=== PATIENT | male | born 1980 | race Caucasian/White ===

== ENCOUNTER 2016-06-23 16:19 | Emergency (ER) | payer OTHER ==
[2016-06-23] MEDS ORDERED: METHOCARBAMOL 500 MG TAB As Ordered ONE (18:12)
[2016-06-23] MEDS ORDERED: PERCOCET 5MG/325MG TAB As Ordered ONE (18:12)
--- NOTE | 2016-06-23 18:50 | REPUSA ---
CLINICAL HISTORY: R/o DVT. COMMENTS: Real time sonography with duplex doppler of the right lower extremity was performed with attention to the major deep venous structures. Evaluation reveals the right common femoral, superficial femoral and popliteal veins to be completely compressible without intraluminal thrombus. There is normal spontaneous phasic flow and augmentation . The greater saphenous/common femoral vein junction is patent. IMPRESSION: No evidence of DVT in right lower extremity. Thank you for your kind referral of this patient.
[2016-06-23] MEDS ORDERED: OXYCODONE/APAP 5MG/325MG(BULK) 1 TAB TAB As Ordered ONE (19:22)
--- NOTE | 2016-06-23 19:36 | EDDOCDS ---
Physician Documentation [facility] Name: Eduard Cisneros Age: 35 yrs Sex: Male : 1980 Arrival Date: 06/23/2016 Time: 16:19 Bed PR Private MD: [facility] Disposition: 06/23/16 19:13 Discharged to Home/Self Care. Impression: Pain in right leg - SECONDARY TO MUSCLE TEAR. - Condition is Stable. - Discharge Instructions: Musculoskeletal Pain. - Prescriptions for Percocet 5- 325 mg Oral Tablet - take 1 tablet by ORAL route every 6 hours As needed MDD: 4 tabs; 6 tablet. Robaxin 500 mg Oral Tablet - take 2 tablet by ORAL route every 6 hours As needed; 40 tablet. - Medication Reconciliation, Local Pharmacy Hours form. - Follow up: [facility]; When: 1 - 2 days; Reason: Recheck today's complaints, Continuance of care. - Problem is new. - Symptoms have improved. - Notes: USE MEDICATION INSTRUCTED, FOLLOW UP WITH YOUR DOCTOR, RETURN TO THE ER IF THE SYMPTOMS WORSEN OR BECOME CONCERNING Historical: - Allergies: no known allergies; - Home Meds: 1. ibuprofen 200 mg Oral tab every 4-6 hours 2. methocarbamol 500 mg Oral tab as needed - PMHx: none; - PSHx: Fusion of L4, L5 & S1; - Social history: Smoking status: Patient states former smoker of tobacco. No barriers to communication noted, The patient speaks fluent Azeri. - Family history: Not pertinent. - : The pt / caregiver states he / she is not on anticoagulants. Home medication list is obtained from the patient. - Exposure Risk Screening:: None identified. Vital Signs: 06/23 16:23 BP 146 / 85; Pulse 92; Resp 18; Temp 98.9; Pulse Ox 96% ; Weight 106.59 kg / 234.99 elp lbs; Height 5 ft. 11 in. (180.34 cm); Pain 8/10; 19:17 BP 132 / 82; Pulse 77; Resp 18; Temp 98.2(T); Pulse Ox 95% on R/A; Pain 2/10; ar3 16:23 Body Mass Index 32.78 (106.59 kg, 180.34 cm) elp MDM: 18:08 oxyCODONE-acetaminophen 5 mg-325 mg 2 tabs PO once ordered. ck7 18:08 Methocarbamol 1 grams PO once ordered. ck7 18:08 US Lower Extremity R/O DVT Ordered. EDMS 18:22 Financial registration complete. kf3 19:13 oxyCODONE-acetaminophen 4 pack 5 mg-325 mg 1 packets PO once; Dispense with pt, take as ck7 per instruction on package ordered. 19:22 [facility] Payment Agreement was scanned into [employer] and attached to record. kf3 Administered Medications: 18:17 Drug: oxyCODONE-acetaminophen 2 tabs [oxycodone-acetaminophen 5 mg-325 mg tablet (2 rs3 tabs)] Route: PO; 18:17 Drug: Methocarbamol 1 grams [methocarbamol 500 mg tablet (2 tabs)] Route: PO; rs3 19:28 Drug: oxyCODONE-acetaminophen 4 pack 1 packets [oxycodone-acetaminophen 5 mg-325 mg rs3 tablet (1 tabs)] {Co-Signature: ben (Shane Multani RN).} Route: PO; Signatures: Dispatcher [employer] EDMS Seth Melendez, Reg Reg kf3 Meg Licona RN RN rs3 Olu Grayson, RPA-C RPA-Cck7 Shane contreras The chart was reviewed and I authenticate all verbal orders and agree with the evaluation and treatment provided.Attachments: 19:22 [facility] Payment Agreement kf3 MTDD
--- NOTE | 2016-06-23 19:36 | EDDOCDS ---
Nurse's Notes [facility] Name: Eduard Cisneros Age: 35 yrs Sex: Male : 1980 Arrival Date: 06/23/2016 Time: 16:19 Bed PR Private MD: [facility] [place] Diagnosis: Pain in right leg-SECONDARY TO MUSCLE TEAR Presentation: 06/23 16:28 Presenting complaint: Patient states: Right leg pain for few months. was seen by Dr. carlos Rai two days ago. has fusiform muscle tear. increased pain, worse with weight bearing and walking. Adult Sepsis Screening: The patient does not have new or worsening altered mentation. Patient's respiratory rate is less than 22. Systolic blood pressure is greater than 100. Patient has a qSOFA score of 0- Negative Sepsis Screen. Suicide/Homicide risk assessment- the patient denies having any suicidal and/or homicidal ideations and does not present with any other emotional, behavioral or mental health complaints. 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 Transition of care: patient was not received from another setting of care. 16:28 Acuity: MAGALI Level 3 rs3 16:28 Method Of Arrival: Wheelchair rs3 Triage Assessment: 16:33 General: Appears in no apparent distress. Pain: Location: right hip/leg. HIV screening rs3 NA for this visit Offered previously. Historical: - Allergies: no known allergies; - Home Meds: 1. ibuprofen 200 mg Oral tab every 4-6 hours 2. methocarbamol 500 mg Oral tab as needed - PMHx: none; - PSHx: Fusion of L4, L5 & S1; - Social history: Smoking status: Patient states former smoker of tobacco. No barriers to communication noted, The patient speaks fluent French. - Family history: Not pertinent. - : The pt / caregiver states he / she is not on anticoagulants. Home medication list is obtained from the patient. - Exposure Risk Screening:: None identified. Screenin:30 Screening information is obtained from the patient. Fall risk: No risks identified. rs3 Assistance ADL's: requires no assistance with activities of daily living. Abuse/DV Screen: The patient / caregiver reports he/she is: not in a situation that causes fear, pain or injury. Nutritional screening: No deficits noted. Advance Directives: Currently, there is no health care proxy. There is no active DNR order. home support is adequate. Assessment: 19:29 General: Appears in no apparent distress, Behavior is appropriate for age, cooperative. rs3 Pain: Location: right hip and leg. Neurological: Level of Consciousness is awake, alert, Oriented to person, place, time. Cardiovascular: Capillary refill < 3 seconds. Respiratory: Airway is patent Respiratory effort is even, unlabored. Derm: Skin is pink, warm & dry. Musculoskeletal: Circulation, motion, and sensation intact Capillary refill < 3 seconds Signs and Symptoms of Compartment Syndrome: no signs of compartment syndrome. Vital Signs: 16:23 BP 146 / 85; Pulse 92; Resp 18; Temp 98.9; Pulse Ox 96% ; Weight 106.59 kg; Height 5 elp ft. 11 in. (180.34 cm); Pain 8/10; 19:17 BP 132 / 82; Pulse 77; Resp 18; Temp 98.2(T); Pulse Ox 95% on R/A; Pain 2/10; ar3 16:23 Body Mass Index 32.78 (106.59 kg, 180.34 cm) el Vitals: 16:23 Log In Time: June 23, 2016 at 16:21. [facility] ED Course: 16:21 Patient visited by Radha Mendez PCA. elp 16:21 Patient moved to Waiting elp 16:22 [facility] is Private Physician. elp 16:23 Patient visited by Radha Mendez PCA. elp 16:23 Patient moved to Pre RCE elp 16:32 Triage Initiated rs3 17:40 Patient moved to Triage 1 ar3 18:00 [facility] ck7 18:00 Kit Biggs MD is Attending Physician. ck7 18:00 Patient visited by Olu Grayson RPA-C. ck7 18:15 Patient moved to TR2 dls 18:49 Patient visited by Olu Grayson RPA-C. ck7 19:08 Patient moved to PR2 / 26 cz 19:13 [facility] is Referral Physician. ck7 19:17 Patient visited by Ananya Washington PCA. ar3 19:18 US Lower Extremity R/O DVT Returned. EDMS 19:22 Patient name changed from Eduard\S\J\S\Walts\S\ to Eduard\S\Zhao\S\Walts. EDMS 19:22 [facility] Payment Agreement was scanned into [employer] and attached to record. kf3 19:30 No IV's were initiated during this patient's visit. No procedures done that require rs3 assistance. 19:31 The patient / caregiver is instructed regarding the plan of care and ED course. rs3 Administered Medications: 18:17 Drug: oxyCODONE-acetaminophen 2 tabs [oxycodone-acetaminophen 5 mg-325 mg tablet (2 rs3 tabs)] Route: PO; 18:17 Drug: Methocarbamol 1 grams [methocarbamol 500 mg tablet (2 tabs)] Route: PO; rs3 19:28 Drug: oxyCODONE-acetaminophen 4 pack 1 packets [oxycodone-acetaminophen 5 mg-325 mg rs3 tablet (1 tabs)] {Co-Signature: cz (Shane Multani RN).} Route: PO; Order Results: Radiology Order: US Lower Extremity R/O DVT Test: US Lower Extremity R/O DVT REASON FOR EXAMINATION: Deformity/Swelling; ; CLINICAL HISTORY: R/o DVT.; COMMENTS:; Real time sonography with duplex doppler of the right lower extremity was performed with attention to; the major deep venous structures.; Evaluation reveals the right common femoral, superficial femoral and popliteal veins to be completely; compressible without intraluminal thrombus. There is normal spontaneous phasic flow and augmentation; . The greater saphenous/common femoral vein junction is patent.; IMPRESSION:; No evidence of DVT in right lower extremity.; Thank you for your kind referral of this patient.; ; Outcome: 19:13 Discharge ordered by Provider. ck7 19:30 Discharge Assessment: patient administered narcotics - yes. Pt provided with safe rs3 discharge. The following High Risk Discharge criteria are identified: None. Discharged to home with family. Condition: stable. Discharge instructions given to patient, Instructed on discharge instructions, follow up and referral plans. medication usage, no driving heavy equipment, Demonstrated understanding of instructions, medications, Pt was receptive of discharge instructions/ teaching. Prescriptions given X 2. Ultrasound Study completed. Property :Personal belongings accompany Pt. 19:35 Patient left the ED. rs3 Signatures: Dispatcher [employer] EDMS Olga Nunez RN RN dls Shane Multani RN RN cz Seth Melendez, Reg Reg kf3 Meg Licona RN RN rs3 Ananya Washington, SENIOR TALENT ACQUISITION SPECIALIST SENIOR TALENT ACQUISITION SPECIALIST ar3 Olu Grayson, RPA-C RPA-Cck7 Andrea, Radha, SENIOR TALENT ACQUISITION SPECIALIST SENIOR TALENT ACQUISITION SPECIALIST elp Shane Multani RN cz MTDD
--- NOTE | 2016-06-25 20:36 | EDDOCDS ---
Nurse's Notes [facility] Name: Eduard Cisneros Age: 35 yrs Sex: Male : 1980 Arrival Date: 06/23/2016 Time: 16:19 Bed PR Private MD: [facility], [place] Diagnosis: Pain in right leg-SECONDARY TO MUSCLE TEAR Presentation: 06/23 16:28 Presenting complaint: Patient states: Right leg pain for few months. was seen by Dr. carlos Rai two days ago. has fusiform muscle tear. increased pain, worse with weight bearing and walking. Adult Sepsis Screening: The patient does not have new or worsening altered mentation. Patient's respiratory rate is less than 22. Systolic blood pressure is greater than 100. Patient has a qSOFA score of 0- Negative Sepsis Screen. Suicide/Homicide risk assessment- the patient denies having any suicidal and/or homicidal ideations and does not present with any other emotional, behavioral or mental health complaints. Status: Patient is not a services mgr or dependent. Transition of care: patient was not received from another setting of care. 16:28 Acuity: MAGALI Level 3 rs3 16:28 Method Of Arrival: Wheelchair rs3 Triage Assessment: 16:33 General: Appears in no apparent distress. Pain: Location: right hip/leg. HIV screening rs3 NA for this visit Offered previously. Historical: - Allergies: no known allergies; - Home Meds: 1. ibuprofen 200 mg Oral tab every 4-6 hours 2. methocarbamol 500 mg Oral tab as needed - PMHx: none; - PSHx: Fusion of L4, L5 & S1; - Social history: Smoking status: Patient states former smoker of tobacco. No barriers to communication noted, The patient speaks fluent Pashto. - Family history: Not pertinent. - : The pt / caregiver states he / she is not on anticoagulants. Home medication list is obtained from the patient. - Exposure Risk Screening:: None identified. Screenin:30 Screening information is obtained from the patient. Fall risk: No risks identified. rs3 Assistance ADL's: requires no assistance with activities of daily living. Abuse/DV Screen: The patient / caregiver reports he/she is: not in a situation that causes fear, pain or injury. Nutritional screening: No deficits noted. Advance Directives: Currently, there is no health care proxy. There is no active DNR order. home support is adequate. Assessment: 19:29 General: Appears in no apparent distress, Behavior is appropriate for age, cooperative. rs3 Pain: Location: right hip and leg. Neurological: Level of Consciousness is awake, alert, Oriented to person, place, time. Cardiovascular: Capillary refill < 3 seconds. Respiratory: Airway is patent Respiratory effort is even, unlabored. Derm: Skin is pink, warm & dry. Musculoskeletal: Circulation, motion, and sensation intact Capillary refill < 3 seconds Signs and Symptoms of Compartment Syndrome: no signs of compartment syndrome. Vital Signs: 16:23 BP 146 / 85; Pulse 92; Resp 18; Temp 98.9; Pulse Ox 96% ; Weight 106.59 kg; Height 5 elp ft. 11 in. (180.34 cm); Pain 8/10; 19:17 BP 132 / 82; Pulse 77; Resp 18; Temp 98.2(T); Pulse Ox 95% on R/A; Pain 2/10; ar3 16:23 Body Mass Index 32.78 (106.59 kg, 180.34 cm) el Vitals: 16:23 Log In Time: June 23, 2016 at 16:21. [facility] ED Course: 16:21 Patient visited by Radha Mendez PCA. elp 16:21 Patient moved to Waiting elp 16:22 [facility] is Private Physician. elp 16:23 Patient visited by Radha Mendez PCA. elp 16:23 Patient moved to Pre RCE elp 16:32 Triage Initiated rs3 17:40 Patient moved to Triage 1 ar3 18:00 [facility] Grayson [facility]C [facility] ck[facility] 18:00 Kit Biggs MD is Attending Physician. ck7 18:00 Patient visited by Olu Grayson RPA-C. ck7 18:15 Patient moved to TR2 dls 18:49 Patient visited by Olu Grayson RPA-C. ck7 19:08 Patient moved to PR2 / 26 cz 19:13 [facility] is Referral Physician. ck7 19:17 Patient visited by Ananya Washington PCA. ar3 19:18 US Lower Extremity R/O DVT Returned. EDMS 19:22 Patient name changed from Eduard\S\J\S\Walts\S\ to Eduard\S\Zhao\S\Walts. EDMS 19:22 [facility] Payment Agreement was scanned into [employer] and attached to record. kf3 19:30 No IV's were initiated during this patient's visit. No procedures done that require rs3 assistance. 19:31 The patient / caregiver is instructed regarding the plan of care and ED course. rs3 22:55 T-Sheet-- Draft Copy was scanned into [employer] and attached to record. klr Administered Medications: 18:17 Drug: oxyCODONE-acetaminophen 2 tabs [oxycodone-acetaminophen 5 mg-325 mg tablet (2 rs3 tabs)] Route: PO; 18:17 Drug: Methocarbamol 1 grams [methocarbamol 500 mg tablet (2 tabs)] Route: PO; rs3 19:28 Drug: oxyCODONE-acetaminophen 4 pack 1 packets [oxycodone-acetaminophen 5 mg-325 mg rs3 tablet (1 tabs)] {Co-Signature: cz (Shane Multani RN).} Route: PO; Order Results: Radiology Order: US Lower Extremity R/O DVT Test: US Lower Extremity R/O DVT REASON FOR EXAMINATION: Deformity/Swelling; ; CLINICAL HISTORY: R/o DVT.; COMMENTS:; Real time sonography with duplex doppler of the right lower extremity was performed with attention to; the major deep venous structures.; Evaluation reveals the right common femoral, superficial femoral and popliteal veins to be completely; compressible without intraluminal thrombus. There is normal spontaneous phasic flow and augmentation; . The greater saphenous/common femoral vein junction is patent.; IMPRESSION:; No evidence of DVT in right lower extremity.; Thank you for your kind referral of this patient.; ; Outcome: 19:13 Discharge ordered by Provider. ck7 19:30 Discharge Assessment: patient administered narcotics - yes. Pt provided with safe rs3 discharge. The following High Risk Discharge criteria are identified: None. Discharged to home with family. Condition: stable. Discharge instructions given to patient, Instructed on discharge instructions, follow up and referral plans. medication usage, no driving heavy equipment, Demonstrated understanding of instructions, medications, Pt was receptive of discharge instructions/ teaching. Prescriptions given X 2. Ultrasound Study completed. Property :Personal belongings accompany Pt. 19:35 Patient left the ED. rs3 Signatures: Dispatcher [employer] EDOlga Murillo RN RN dls Zecher, Calvin, RN RN cz Seth Melendez, Reg Reg kf3 Meg Licona RN RN rs3 Ananya Washington, CHANNEL MARKETING SPECIALIST CHANNEL MARKETING SPECIALIST ar3 Olu Grayson, RPA-C RPA-Cck7 Radha Mendez, CHANNEL MARKETING SPECIALIST CHANNEL MARKETING SPECIALIST vanitap Lorna Shane RN cz Chart Complete MTDD
--- NOTE | 2016-06-25 20:36 | EDDOCDS ---
Physician Documentation [facility] Name: Eduard Cisneros Age: 35 yrs Sex: Male : 1980 Arrival Date: 06/23/2016 Time: 16:19 Bed PR Private MD: [facility] Disposition: 06/23/16 19:13 Discharged to Home/Self Care. Impression: Pain in right leg - SECONDARY TO MUSCLE TEAR. - Condition is Stable. - Discharge Instructions: Musculoskeletal Pain. - Prescriptions for Percocet 5- 325 mg Oral Tablet - take 1 tablet by ORAL route every 6 hours As needed MDD: 4 tabs; 6 tablet. Robaxin 500 mg Oral Tablet - take 2 tablet by ORAL route every 6 hours As needed; 40 tablet. - Medication Reconciliation, Local Pharmacy Hours form. - Follow up: [facility]; When: 1 - 2 days; Reason: Recheck today's complaints, Continuance of care. - Problem is new. - Symptoms have improved. - Notes: USE MEDICATION INSTRUCTED, FOLLOW UP WITH YOUR DOCTOR, RETURN TO THE ER IF THE SYMPTOMS WORSEN OR BECOME CONCERNING Historical: - Allergies: no known allergies; - Home Meds: 1. ibuprofen 200 mg Oral tab every 4-6 hours 2. methocarbamol 500 mg Oral tab as needed - PMHx: none; - PSHx: Fusion of L4, L5 & S1; - Social history: Smoking status: Patient states former smoker of tobacco. No barriers to communication noted, The patient speaks fluent Azeri. - Family history: Not pertinent. - : The pt / caregiver states he / she is not on anticoagulants. Home medication list is obtained from the patient. - Exposure Risk Screening:: None identified. Vital Signs: 06/23 16:23 BP 146 / 85; Pulse 92; Resp 18; Temp 98.9; Pulse Ox 96% ; Weight 106.59 kg / 234.99 elp lbs; Height 5 ft. 11 in. (180.34 cm); Pain 8/10; 19:17 BP 132 / 82; Pulse 77; Resp 18; Temp 98.2(T); Pulse Ox 95% on R/A; Pain 2/10; ar3 16:23 Body Mass Index 32.78 (106.59 kg, 180.34 cm) elp MDM: 18:08 oxyCODONE-acetaminophen 5 mg-325 mg 2 tabs PO once ordered. ck7 18:08 Methocarbamol 1 grams PO once ordered. ck7 18:08 US Lower Extremity R/O DVT Ordered. EDMS 18:22 Financial registration complete. kf3 19:13 oxyCODONE-acetaminophen 4 pack 5 mg-325 mg 1 packets PO once; Dispense with pt, take as ck7 per instruction on package ordered. : [facility] Payment Agreement was scanned into [employer] and attached to record. kf3 22:55 T-Sheet-- Draft Copy was scanned into [employer] and attached to record. klr Administered Medications: 18:17 Drug: oxyCODONE-acetaminophen 2 tabs [oxycodone-acetaminophen 5 mg-325 mg tablet (2 rs3 tabs)] Route: PO; 18:17 Drug: Methocarbamol 1 grams [methocarbamol 500 mg tablet (2 tabs)] Route: PO; rs3 19:28 Drug: oxyCODONE-acetaminophen 4 pack 1 packets [oxycodone-acetaminophen 5 mg-325 mg rs3 tablet (1 tabs)] {Co-Signature: cz (Shane Multani RN).} Route: PO; Signatures: Dispatcher [employer] EDMS Seth Melendez, Reg Reg kf3 Meg Licona,ZEKE RN rs3 Olu Grayson, KEITH-C RPA-Cck7 Lorna Shane RN The chart was reviewed and I authenticate all verbal orders and agree with the evaluation and treatment provided.Attachments: : [facility] Payment Agreement kf3 22:55 T-Sheet-- Draft Copy klr Chart Complete MTDD
--- NOTE | 2016-06-25 20:36 | EDDOCDS ---
Physician Documentation [facility] Name: Eduard Cisneros Age: 35 yrs Sex: Male : 1980 Arrival Date: 06/23/2016 Time: 16:19 Bed PR Private MD: [facility] Disposition: 06/23/16 19:13 Discharged to Home/Self Care. Impression: Pain in right leg - SECONDARY TO MUSCLE TEAR. - Condition is Stable. - Discharge Instructions: Musculoskeletal Pain. - Prescriptions for Percocet 5- 325 mg Oral Tablet - take 1 tablet by ORAL route every 6 hours As needed MDD: 4 tabs; 6 tablet. Robaxin 500 mg Oral Tablet - take 2 tablet by ORAL route every 6 hours As needed; 40 tablet. - Medication Reconciliation, Local Pharmacy Hours form. - Follow up: [facility]; When: 1 - 2 days; Reason: Recheck today's complaints, Continuance of care. - Problem is new. - Symptoms have improved. - Notes: USE MEDICATION INSTRUCTED, FOLLOW UP WITH YOUR DOCTOR, RETURN TO THE ER IF THE SYMPTOMS WORSEN OR BECOME CONCERNING Historical: - Allergies: no known allergies; - Home Meds: 1. ibuprofen 200 mg Oral tab every 4-6 hours 2. methocarbamol 500 mg Oral tab as needed - PMHx: none; - PSHx: Fusion of L4, L5 & S1; - Social history: Smoking status: Patient states former smoker of tobacco. No barriers to communication noted, The patient speaks fluent Setswana. - Family history: Not pertinent. - : The pt / caregiver states he / she is not on anticoagulants. Home medication list is obtained from the patient. - Exposure Risk Screening:: None identified. Vital Signs: 06/23 16:23 BP 146 / 85; Pulse 92; Resp 18; Temp 98.9; Pulse Ox 96% ; Weight 106.59 kg / 234.99 elp lbs; Height 5 ft. 11 in. (180.34 cm); Pain 8/10; 19:17 BP 132 / 82; Pulse 77; Resp 18; Temp 98.2(T); Pulse Ox 95% on R/A; Pain 2/10; ar3 16:23 Body Mass Index 32.78 (106.59 kg, 180.34 cm) elp MDM: 18:08 oxyCODONE-acetaminophen 5 mg-325 mg 2 tabs PO once ordered. ck7 18:08 Methocarbamol 1 grams PO once ordered. ck7 18:08 US Lower Extremity R/O DVT Ordered. EDMS 18:22 Financial registration complete. kf3 19:13 oxyCODONE-acetaminophen 4 pack 5 mg-325 mg 1 packets PO once; Dispense with pt, take as ck7 per instruction on package ordered. : [facility] Payment Agreement was scanned into [employer] and attached to record. kf3 22:55 T-Sheet-- Draft Copy was scanned into [employer] and attached to record. klr Administered Medications: 18:17 Drug: oxyCODONE-acetaminophen 2 tabs [oxycodone-acetaminophen 5 mg-325 mg tablet (2 rs3 tabs)] Route: PO; 18:17 Drug: Methocarbamol 1 grams [methocarbamol 500 mg tablet (2 tabs)] Route: PO; rs3 19:28 Drug: oxyCODONE-acetaminophen 4 pack 1 packets [oxycodone-acetaminophen 5 mg-325 mg rs3 tablet (1 tabs)] {Co-Signature: cz (Shane Multani RN).} Route: PO; Signatures: Dispatcher [employer] EDMS Seth Melendez, Reg Reg kf3 Meg Licona,ZEKE RN rs3 Olu Grayson, KEITH-C RPA-Cck7 Lorna Shane RN The chart was reviewed and I authenticate all verbal orders and agree with the evaluation and treatment provided.Attachments: : [facility] Payment Agreement kf3 22:55 T-Sheet-- Draft Copy klr Chart Complete MTDD
== END 2016-06-23 19:35 | disposition home or self-care (01) ==
LOC: M ED 16:19
DX: M79.604 Pain in right leg (principal); Z87.891 Personal history of nicotine dependence; Z79.899 Other long term (current) drug therapy; Z79.1 Long term (current) use of non-steroidal anti-inflammatories (NSAID)

== ENCOUNTER 2017-01-23 10:24 | Emergency (ER) | payer OTHER ==
[~2017-01-23] VITALS: Ht 180.3 cm; Wt 96.3 kg
[2017-01-23] MEDS ORDERED: METH75TA (10:48)
[2017-01-23] MEDS ORDERED: DICL75TA (10:48)
[2017-01-23] MEDS ORDERED: ASPI-101 (10:48)
[2017-01-23] MEDS ORDERED: TRIXAICIN (10:48)
[2017-01-23] MEDS ORDERED: predniSONE 20 MG TAB PO ONE (12:15)
[2017-01-23] MEDS ORDERED: KETOROLAC 60 MG/2 ML VIAL (J1885) IM ONE (12:15)
[2017-01-23] MEDS ORDERED: PRED20TA PO (13:23)
--- NOTE | 2017-01-23 13:24 | REP ---
LUMBOSACRAL SPINE: Five views lumbosacral spine performed. There is no compression fracture. There is no malalignment. There is evidence of prior fusion at L4-5 with posterior rods and screws. There is mild narrowing at the L5-S1 disc space. There appears to have been a laminectomy at the L5-S1 level. IMPRESSION: Posterior fusion at L5-S1 without evidence of acute fracture or dislocation. Signed by Cristino Jaime MD 01/23/2017 05:04 P
[2017-01-23 13:28] VITALS: BP 132/75
[2017-01-23] MEDS ORDERED: ZANA4TAB PO (13:35)
== END 2017-01-23 13:42 | disposition home or self-care (01) ==
LOC: M ED 10:24
DX: M54.32 Sciatica, left side (principal); Z79.82 Long term (current) use of aspirin; Z79.899 Other long term (current) drug therapy; Z79.52 Long term (current) use of systemic steroids
CPT/HCPCS: 72110; 96372; 99283; J1885

== ENCOUNTER 2017-07-21 10:39 | Emergency (ER) | payer OTHER ==
[2017-07-21 13:00] LABS: HEMATOCRIT 42.1 % (42.0-52.0); HEMOGLOBIN 14.7 g/dl (14.0-18.0); MEAN CORPUSCULAR HEMOGLOBIN 29.6 pg (27.0-33.0); MEAN CORPUSCULAR HGB CONC 34.9 g/dl (32.0-36.5); MEAN CORPUSCULAR VOLUME 84.7 fl (80.0-96.0); PLATELET COUNT, AUTOMATED 233 10^3/uL (150-450); RED BLOOD COUNT 4.97 10^6/uL (4.30-6.10); RED CELL DISTRIBUTION WIDTH 12.5 % (11.5-14.5); WHITE BLOOD COUNT 9.2 10^3/uL (4.0-10.0)
[2017-07-21 13:19] LABS: ACETAMINOPHEN LEVEL < 2.0 UG/ML (10.0-30.0); ALBUMIN/GLOBULIN RATIO 1.33 (1.00-1.93); ALKALINE PHOSPHATASE 65 U/L (45-117); ALT/SGPT 22 U/L (12-78); ANION GAP 7 MEQ/L (8-16); AST/SGOT 15 U/L (7-37); BILIRUBIN,DIRECT 0.2 MG/DL (0.0-0.2); BILIRUBIN,TOTAL 0.6 MG/DL (0.2-1.0); BLOOD UREA NITROGEN 16 MG/DL (7-18); CALCIUM LEVEL 8.7 MG/DL (8.5-10.1); CARBON DIOXIDE LEVEL 27 MEQ/L (21-32); CHLORIDE LEVEL 108 MEQ/L (98-107); CREATININE FOR GFR 0.85 MG/DL (0.70-1.30); ETHYL ALCOHOL (ETHANOL) 0.003 % (0.000-0.010); GLOMERULAR FILTRATION RATE > 60.0 (>60); GLUCOSE, FASTING 85 MG/DL (70-100); POTASSIUM SERUM 3.5 MEQ/L (3.5-5.1); SALICYLATE LEVEL < 1.7 MG/DL (5.0-30.0); SODIUM LEVEL 142 MEQ/L (136-145); THYROID STIMULATING HORMONE 0.835 uIU/ML (0.358-3.740)
[2017-07-21 14:54] LABS: AMPHETAMINES LEVEL URINE NEGATIVE (NEGATIVE); BARBITURATES URINE NEGATIVE (NEGATIVE); BENZODIAZEPINES URINE NEGATIVE (NEGATIVE); CANNABINOIDS URINE POSITIVE (NEGATIVE); COCAINE METABOLITE URINE NEGATIVE (NEGATIVE); METHADONE URINE NEGATIVE (NEGATIVE); OPIATES URINE NEGATIVE (NEGATIVE); PHENCYCLIDINE URINE NEGATIVE (NEGATIVE)
== END 2017-07-21 18:15 | disposition home or self-care (01) ==
LOC: M ED 10:39
DX: F32.9 Major depressive disorder, single episode, unspecified (principal)
CPT/HCPCS: G0480

== ENCOUNTER → 2018-09-21 | Outpatient (CLI) | payer OTHER ==
[~2018-09-21] MED LIST: ASPI-225; DICL75TA; METH75TA; PRED20TA PO; TRIXAICIN; ZANA4TAB PO
--- NOTE | 2018-09-21 12:20 | REP ---
DIGITAL DIAGNOSTIC BILATERAL MAMMOGRAPHY WITH CAD AND FOCUSED RIGHT BREAST SONOGRAPHY: HISTORY: Palpable lump in the right breast. Pea-sized lump present for two and half months. History of previous lipoma removal. MAMMOGRAPHIC FINDINGS: An opaque marker is affixed to the skin at the site of the palpable lump which projects at approximately the 6-o'clock position in the right breast. There is no evidence of mass, architectural distortion, microcalcification or worrisome skin change. Mammographic images are bilaterally unremarkable in this male patient. SONOGRAPHIC FINDINGS: Right breast is scanned in the 6-o'clock position. Normal subcutaneous elements are seen. There is evidence of a very slightly hyperechoic subcutaneous nodule measuring 13 x 13 x 6 mm located 2.5 cm from the nipple most consistent with lipoma. No suspicious sonographic features. IMPRESSION: BIRADS 2: BI-RADS/ACR category 2 mammogram. Benign Findings. BIRADS category 2 benign findings. Possible lipoma seen by sonography. No suspicious mammographic or sonographic findings. Clinical followup is advised. This mammogram was interpreted with the aid of an FDA-approved computer-aided detection system. The patient states she had a clinical breast exam in September 2018. The patient letter being requested is M male patient #[id number]. Electronically Signed by Jim Brunner MD 09/21/2018 04:41 P
== END ==
LOC: M RAD 09:48
PROVIDERS: ATTEND Internal Medicine
DX: Z12.31 Encounter for screening mammogram for malignant neoplasm of breast (principal); N63.0 Unspecified lump in unspecified breast

== ENCOUNTER 2019-06-06 16:52 | Emergency (ER) | payer OTHER ==
[~2019-06-06 16:52] MED LIST changes: +METH750T2; -METH75TA
[2019-06-06 17:16] LABS: BASO # 0.1 10^3/uL (0.0-0.2); BASO % 0.4 % (0.0-1.0); EOS # 0.1 10^3/uL (0.0-0.5); EOS % 0.7 % (0.0-3.0); HEMATOCRIT 43.6 % (42.0-52.0); HEMOGLOBIN 14.4 g/dl (13.5-17.5); LYMPH % 22.1 % (24.0-44.0); MEAN CORPUSCULAR HEMOGLOBIN 29.5 pg (27.0-33.0); MEAN CORPUSCULAR VOLUME 89.3 fl (80.0-96.0); MONO # 0.8 10^3/uL (0.0-0.8); MONO % 5.8 % (0.0-5.0); NEUTROPHILS # 9.4 10^3/uL (1.5-8.5); NEUTROPHILS % 70.5 % (36.0-66.0); PLATELET COUNT, AUTOMATED 232 10^3/uL (150-450); RED BLOOD COUNT 4.88 10^6/uL (4.30-6.10); WHITE BLOOD COUNT 13.4 10^3/uL (4.0-10.0)
[2019-06-06 17:34] LABS: PROTHROMBIN TIME 12.9 SECONDS (11.8-14.0)
[2019-06-06] MEDS: PANTOPRAZOLE 40MG INJ (PROTONIX) (C9113) IV ONE (17:43)
[2019-06-06] MEDS: NS 1,000 ML IV SCH (17:43)
[2019-06-06 17:45] LABS: ALBUMIN 3.6 GM/DL (3.2-5.2); ALT/SGPT 18 U/L (12-78); BILIRUBIN,DIRECT < 0.1 MG/DL (0.0-0.2); BILIRUBIN,TOTAL 0.3 MG/DL (0.2-1.0); BLOOD UREA NITROGEN 12 MG/DL (7-18); CALCIUM LEVEL 8.9 MG/DL (8.5-10.1); CARBON DIOXIDE LEVEL 25 MEQ/L (21-32); CHLORIDE LEVEL 108 MEQ/L (98-107); CPK CREATINE PHOSPHOKINASE 155 U/L (39-308); CREATININE FOR GFR 1.04 MG/DL (0.70-1.30); GLOMERULAR FILTRATION RATE > 60.0 (>60); GLUCOSE, FASTING 60 MG/DL (70-100); LIPASE 107 U/L (73-393); MB/CK RELATIVE INDEX 0.65 (< OR =4); POTASSIUM SERUM 3.9 MEQ/L (3.5-5.1); SODIUM LEVEL 141 MEQ/L (136-145); TOTAL PROTEIN 6.9 GM/DL (6.4-8.2); TROPONIN I < 0.02 NG/ML (< 0.10)
[2019-06-06] MEDS: GI COCKTAIL 50ML BTL(HYOSCYAMINE/MAALOX/LIDOCAINE VISCOUS)(1:3:1) PO ONE (17:46)
--- NOTE | 2019-06-06 18:23 | REP ---
Clinical: Epigastric and abdominal pain. Technique: Upright view of the chest with supine and upright views of the abdomen and pelvis. Findings: Frontal upright view of the chest demonstrates no acute cardiopulmonary process or free air below the diaphragm to suspect pneumoperitoneum. Supine and upright views of the abdomen and pelvis demonstrate nonspecific bowel gas pattern without obstruction or perforation. No organomegaly. No abnormal calcifications. Skeletal structures with prior lower lumbar laminectomy and posterior fixation. Impression: Nonspecific bowel gas pattern. Electronically Signed by Paresh Madrigal MD 06/06/2019 06:15 P
--- NOTE | 2019-06-06 18:27 | REP ---
Clinical: Chest and abdominal pain . Comparison: 03/02/2012 . Technique: PA (abdominal series) and lateral. Findings: The mediastinum and cardiac silhouette are normal. The lung khan are clear and without acute consolidation, effusion, or pneumothorax. The skeletal structures are intact and normal. Impression: 1. No acute cardiopulmonary process. Electronically Signed by Paresh Madrigal MD 06/06/2019 06:18 P
[2019-06-06] MEDS: KETOROLAC 30 MG/ML VIAL (J1885) IV ONE (19:16)
--- NOTE | 2019-06-06 20:19 | REPVR ---
PROCEDURE INFORMATION: Exam: CT Abdomen And Pelvis Without Contrast Exam date and time: 06/06/2019 7:04 PM Age: 38 years old Clinical indication: Abdominal pain; Localized; Left upper quadrant (luq); Additional info: Pain luq TECHNIQUE: Imaging protocol: Computed tomography of the abdomen and pelvis without contrast. Radiation optimization: All CT scans at this facility use at least one of these dose optimization techniques: automated exposure control; mA and/or kV adjustment per patient size (includes targeted exams where dose is matched to clinical indication); or iterative reconstruction. COMPARISON: CR Abdomen,Flat Upright,PA CHEST 06/06/2019 5:25 PM FINDINGS: Limited evaluation without enteric or IV contrast. Lungs: No suspicious mass or airspace process in the visualized lung bases. Liver: Noncontrast liver shows no obvious lesion. Gallbladder and bile ducts: Gallbladder is present and shows no evidence of gallstone. Pancreas: Noncontrast pancreas shows no obvious mass or adjacent fluid. Spleen: Noncontrast spleen shows no obvious focal deformity. Focal stranding in the anterior splenic hilum, with a 2.4 x 1.7 cm ovoid soft tissue lesion. Adrenals: Adrenal glands are normal in appearance. Kidneys and ureters: Kidneys show no stone or hydronephrosis. Stomach and bowel: Diverticular changes are present within the colon without inflammation. Appendix: Normal caliber appendix is identified, with no adjacent inflammation. Intraperitoneal space: No pneumoperitoneum. . Vasculature: No aortic aneurysm. Lymph nodes: No enlarged lymph nodes. Bladder: Urinary bladder appears normal. Bones/joints: Surgical hardware L5 and S1, unchanged in position, with chronic mild L5-S1 spondylolisthesis. IMPRESSION: 1. Focal area of inflammation in the anterior splenic hilum measuring 2.4 x 1.7 cm with adjacent soft tissue stranding. This is distinct from the adjacent colon. It could represent an inflamed lymph node or thrombosed vein. Specific diagnosis is not possible on this exam. 2. No evidence of renal stone or obstruction. 3. Colonic diverticulosis without active inflammation Electronically signed by: Claude Colin On 06/06/2019 20:19:11 PM
--- NOTE | 2019-06-06 20:28 | ECGEPIP ---
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
[2019-06-06] MEDS ORDERED: KEFL500C17 PO (20:35)
[2019-06-06 21:03] VITALS: BP 120/82
[2019-06-06] MEDS: CEPHALEXIN 500 MG CAP PO ONE (21:04)
== END 2019-06-06 21:17 | disposition home or self-care (01) ==
LOC: EDBD 16:52 → M ED 16:52
DX: D73.1 Hypersplenism (principal)
CPT/HCPCS: 71045; 74021; 74176; 80048; 80076; 81001; 82550; 82553; 83690; 84484; 85025; 85610; 93005; 93041; 94760; 96374; 96375; 99285; C9113; J1885

== ENCOUNTER → 2022-03-13 | Outpatient (CLI) | payer OTHER ==
[~2022-03-13] MED LIST changes: -ASPI-225; +ASPI81TA78; +KEFL500C17 PO; +METH-1165; -METH750T2
== END ==
LOC: M LABSMTC 09:19
PROVIDERS: ATTEND Anesthesiology
DX: Z01.812 Encounter for preprocedural laboratory examination (principal); Z20.822 Contact with and (suspected) exposure to COVID-19

== ENCOUNTER 2022-03-18 12:09 | Day surgery (SDC) | payer OTHER ==
[~2022-03-18] VITALS: Ht 180.3 cm; Wt 87.0 kg
[~2022-03-18 12:09] MED LIST changes: +NS 1,000 ML IV ONE
[2022-03-18] MEDS ORDERED: fentaNYL 100 MCG/2 ML INJECTION As Ordered ONE (13:42)
[2022-03-18] MEDS ORDERED: propofoL 200 MG/20 ML VIAL As Ordered ONE (13:42)
[2022-03-18] MEDS ORDERED: LIDOCAINE 2% 100MG/5ML SDV (FOR ANES.) As Ordered ONE (13:42)
[2022-03-18 14:05] VITALS: BP 138/96
== END 2022-03-18 14:25 | disposition home or self-care (01) ==
LOC: M OPP 12:09
PROVIDERS: ATTEND Internal Medicine Gastroenterology
DX: K63.89 Other specified diseases of intestine (principal); K29.60 Other gastritis without bleeding; K22.89 Other specified disease of esophagus; Z85.72 Personal history of non-Hodgkin lymphomas; Z92.21 Personal history of antineoplastic chemotherapy; Z80.41 Family history of malignant neoplasm of ovary; Z86.14 Personal history of Methicillin resistant Staphylococcus aureus infection
CPT/HCPCS: 43239; 88305; J3010

== ENCOUNTER → 2022-06-26 | Outpatient (CLI) | payer OTHER ==
[~2022-06-26] MED LIST changes: -NS 1,000 ML IV ONE
== END ==
LOC: M SOG 08:42
PROVIDERS: ATTEND Orthopaedic Surgery
DX: M79.662 Pain in left lower leg (principal)